=== PATIENT | male | born 1985 | race Caucasian/White ===

== ENCOUNTER 2016-11-15 14:12 | Emergency (ER) | payer OTHER ==
[~2016-11-15] VITALS: Ht 167.6 cm; Wt 85.7 kg
[2016-11-15 16:04] VITALS: BP 126/70
== END 2016-11-15 16:06 | disposition home or self-care (01) ==
LOC: ED 14:12
DX: S40.012A Contusion of left shoulder, initial encounter (principal); S20.219A Contusion of unspecified front wall of thorax, initial encounter; R03.0 Elevated blood-pressure reading, without diagnosis of hypertension; F17.210 Nicotine dependence, cigarettes, uncomplicated; W01.0XXA Fall on same level from slipping, tripping and stumbling without subsequent striking against object, initial encounter; Y93.89 Activity, other specified; Y92.89 Other specified places as the place of occurrence of the external cause; Y99.8 Other external cause status